=== PATIENT | male | born 1980 | race Caucasian/White ===

== ENCOUNTER 2016-10-07 21:54 | Emergency (ER) | payer BC, OTHER ==
[2016-10-07 22:03] VITALS: BP 127/76; PULSE 109; TEMP 97.5; BMI 24.2
--- NOTE | 2016-10-07 22:45 | PDOC ---
History of Present Illness - General History Source: Patient Exam Limitations: No Limitations - History of Present Illness Initial Comments: 10/07/16 23:38 The patient is a 35-year-old male, with a significant past medical history of hashimotos thyroiditis, gerd, IBS, migraines, and anxiety, who presents to the ED with upper back pain today. Pt states that he woke up with a headache this morning (10 AM). After work patient went to physical therapy regarding his back pain (pt has never had back imaging done before). Pt was diagnosed with lumbar pain. While at home, pt experienced 1 episode of vomiting and hurt his back even more. He decided to report to the ED for further evaluation. While in the car, pt began to experience numbness and tingling in his face, back, and arms. As per , pt had a panic attack once he began to experience the numbness and tingling. On exam, pt refuses head CT because he is not worried about his headache and is only concerned with his back pain. The patient denies any fever, chills, diarrhea, or abdominal pain. He denies any chest pain or shortness of breath. PCP: Dr. Lawler Surgical Hx: Fine needle biopsies, ingrown nail surgeries, endoscopy. Allergies: Latex <Arleen Sifuentes - Last Filed: 10/07/16 23:46> <Nancy Flanagan - Last Filed: 10/08/16 19:57> - General Chief Complaint: Weakness Stated Complaint: GENERALIZED NUMBNESS Time Seen by Provider: 10/07/16 22:25 Past History <Arleen Sifuentes - Last Filed: 10/07/16 23:46> - Past Medical History Thyroid Disease: Yes (Gretchen's) - Psycho/Social/Smoking Cessation Hx Suicidal Ideation: No Smoking History: Never smoked Information on smoking cessation initiated: No Hx Alcohol Use: No Drug/Substance Use Hx: No Substance Use Type: None <Nancy Flanagan - Last Filed: 10/08/16 19:57> - Past Medical History Allergies/Adverse Reactions: Allergies Allergy/AdvReac Type Severity Reaction Status Date / Time No Known Allergies Allergy Verified 10/07/16 22:00 Home Medications: Ambulatory Orders Gentamicin 0.1% Ointment tube TP DAILY 10/08/16 Levothyroxine [Synthroid -] 25 mcg PO DAILY 10/08/16 Methocarbamol [Robaxin -] 500 mg PO TID #30 tablet 10/08/16 Ranitidine HCl [Zantac 75] 75 mg PO BID 10/08/16 Review of Systems - Review of Systems Able to Perform ROS?: Yes Comments:: 10/07/16 23:39 CONSTITUTIONAL: Absent: fever, chills, diaphoresis, generalized weakness, malaise, loss of appetite HEENT: Absent: rhinorrhea, nasal congestion, throat pain, throat swelling, difficulty swallowing, mouth swelling, ear pain, eye pain, visual Changes CARDIOVASCULAR: Absent: chest pain, syncope, palpitations, irregular heart rate, lightheadedness , peripheral edema RESPIRATORY: Absent: cough, shortness of breath, dyspnea with exertion, orthopnea, wheezing, stridor, hemoptysis GASTROINTESTINAL: Present: nausea, vomiting Absent: abdominal pain, abdominal distension, diarrhea, constipation, melena, hematochezia GENITOURINARY: Absent: dysuria, frequency, urgency, hesitancy, hematuria, flank pain, genital pain MUSCULOSKELETAL: Present: back pain Absent: arthralgia, joint swelling SKIN: Absent: rash, itching, pallor HEMATOLOGIC/IMMUNOLOGIC: Absent: easy bleeding, easy bruising, lymphadenopathy, frequent infections ENDOCRINE: Absent: unexplained weight gain, unexplained weight loss, heat intolerance, cold intolerance NEUROLOGIC: Present: headache, numbness/tingling in back, face, and arms Absent: dizziness, unsteady gait, seizure, mental status changes, bladder or bowel incontinence PSYCHIATRIC: Present: anxiety Absent: depression, suicidal or homicidal ideation, hallucinations. <Arleen Sifuentes - Last Filed: 10/07/16 23:46> *Physical Exam - Vital Signs Last Vital Signs Temp Pulse Resp BP Pulse Ox 97.5 F L 109 H 20 127/76 100 10/07/16 22:01 10/07/16 22:01 10/07/16 22:01 10/07/16 22:01 10/07/16 22:01 - Physical Exam Comments: 10/07/16 23:41 GENERAL: Well developed, well nourished. Awake and alert. No acute distress. HEENT: Normocephalic, atraumatic. PERRLA, EOMI. No conjunctival pallor. Sclera are non- icteric. Moist mucous membranes. Oropharynx is clear. NECK: Supple. Full ROM. No JVD. Carotid pulses 2+ and symmetric, without bruits. No thyromegaly. No lymphadenopathy. CARDIOVASCULAR: Regular rate and rhythm. No murmurs, rubs, or gallops. Distal pulses are 2+ and symmetric. PULMONARY: No evidence of respiratory distress. Lungs clear to auscultation bilaterally. No wheezing, rales or rhonchi. ABDOMINAL: Soft. Non-tender. Non-distended. No rebound or guarding. No organomegaly. Normoactive bowel sounds. MUSCULOSKELETAL No CVA tenderness. No midline tenderness. No paraspinal tenderness with palpation, +however patient has paraspinal tenderness when he moves. EXTREMITIES: No cyanosis. No clubbing. No edema. No calf tenderness. SKIN: Warm and dry. Normal capillary refill. No rashes. No jaundice. NEUROLOGICAL: Alert, awake, appropriate. Cranial nerves 2-12 intact. No deficits to light touch and temperature in face, upper extremities and lower extremities. No motor deficits in the in face, upper extremities and lower extremities. Reflex intact. Strength intact. PSYCHIATRIC: Cooperative. Good eye contact. Appropriate mood and affect. <Arleen Sifuentes - Last Filed: 10/07/16 23:46> - Vital Signs Last Vital Signs Temp Pulse Resp BP Pulse Ox 97.5 F L 109 H 20 127/76 100 10/07/16 22:01 10/07/16 22:01 10/07/16 22:01 10/07/16 22:01 10/07/16 22:01 <Nancy Flanagan - Last Filed: 10/08/16 19:57> ED Treatment Course - Medications Given in the ED: ED Medications Discontinued Medications Generic Name Dose Route Start Last Admin Trade Name Freq PRN Reason Stop Dose Admin Ibuprofen 600 mg 10/07/16 22:47 10/07/16 23:30 Motrin - PO 10/07/16 22:48 600 mg ONCE ONE Administration Methocarbamol 1,000 mg 10/07/16 22:47 10/07/16 23:30 Robaxin - PO 10/07/16 22:48 1,000 mg ONCE ONE Administration <Arleen Sifuentes - Last Filed: 10/07/16 23:46> Medical Decision Making - Medical Decision Making 10/08/16 01:26 Pt rethought his decision not to have a CT head and agrees to one: Patient Name: Jani Vanegas THIS IS A PRELIMINARYREPORT FROM [facility] EXAM: CT brain without contrast IMAGES: 180 INDICATION: Migraine headache and arm numbness DATE OF SERVICE: 2016-10-08 00:43:31.0 COMPARISON: none FINDINGS: The ventricular system is midline and nondilated. The sulcal pattern is normal for the patient's age. There is no bleed, mass, extra-axial fluid collection or mass effect. No skull fracture or skull lesion is identified. The visualized paranasal sinuses and mastoid air cells are clear other than minimal ethmoid sinus mucosal thickening. IMPRESSION: No evidence of acute pathology. 10/08/16 19:54 Pt's C spine and T spine XRAYS are normal. Pt will be treated with muscle relaxants. I asked him to follow with his PMD for migraine follow up. <Nancy Flanagan - Last Filed: 10/08/16 19:57> *DC/Admit/Observation/Transfer - Attestations Scribe Attestion: 10/07/16 23:42 Documentation prepared by Arleen Sifuentes, acting as biomedical engineering internship for Nancy Flanagan MD. <Arleen Sifuentes - Last Filed: 10/07/16 23:46> - Discharge Dispostion Admit: No <Nancy Flanagan - Last Filed: 10/08/16 19:57> Diagnosis at time of Disposition: Muscle strain, Back pain, Anxiety, Migraine - Discharge Dispostion Disposition: HOME Condition at time of disposition: Stable - Prescriptions Prescriptions: Methocarbamol [Robaxin -] 500 mg PO TID #30 tablet - Referrals Referrals: Bessie Lawler [Primary Care Provider] - - Patient Instructions Printed Discharge Instructions: Back Pain (Alternative Therapy), DI for Muscle Strain, Migraine -- Adult - Post Discharge Activity Work/School Note: Back to Work
[2016-10-07] MEDS ORDERED: METHOCARBAMOL 500 MG TABLET PO ONE (22:47)
[2016-10-07] MEDS ORDERED: IBUPROFEN 600 MG TABLET (FP) PO ONE ×2 (22:47→23:27)
[2016-10-07] MEDS ORDERED: METHOCARBAMOL 500 MG TABLET ONE (23:26)
[2016-10-07] MEDS ORDERED: diazePAM 2 MG TABLET PO ONE (23:33)
== END 2016-10-08 04:10 | disposition home or self-care (01) ==
LOC: JER 21:54
DX: G43.909 Migraine, unspecified, not intractable, without status migrainosus (principal); S29.012A Strain of muscle and tendon of back wall of thorax, initial encounter; F41.9 Anxiety disorder, unspecified; X58.XXXA Exposure to other specified factors, initial encounter; Y93.89 Activity, other specified; Y92.89 Other specified places as the place of occurrence of the external cause
CPT/HCPCS: 70450-TC; 72050-TC; 72070-TC; 99282-25